=== PATIENT | male | born 1985 | race Caucasian/White ===

== ENCOUNTER 2017-08-10 19:25 | Emergency (ER) | payer SELFPAY ==
[2017-08-10 19:30] VITALS: O2SAT 100
[2017-08-10] MEDS ORDERED: ceFAZolin 2 GM PREMIX 50 ML ONE (19:31)
[2017-08-10] MEDS ORDERED: IOHEXOL 350 MG/ML 10 ML VIAL (for RAD DIAG) IVCONTRAST ONE (19:40)
[2017-08-10 19:44] LABS: AUTOMATED NEUTROPHIL # 4.9 TH/MM3 (1.8-7.7); BASOPHIL # 0.1 TH/MM3 (0-0.2); BASOPHIL % 0.9 % (0.0-2.0); EOSINOPHIL # 0.2 TH/MM3 (0-0.4); EOSINOPHIL % 1.9 % (0.0-4.0); HEMATOCRIT 40.5 % (39.0-51.0); LYMPH % 29.4 % (9.0-44.0); LYMPHOCYTE # 2.4 TH/MM3 (1.0-4.8); MEAN CELL VOLUME 92.2 FL (80.0-100.0); MEAN CORPUSCULAR HEMOGLOBIN 31.9 PG (27.0-34.0); MEAN CORPUSCULAR HGB CONC 34.6 % (32.0-36.0); MONO % 7.3 % (0.0-8.0); MONOCYTE # 0.6 TH/MM3 (0-0.9); NEUT % 60.5 % (16.0-70.0); PLATELET COUNT 244 TH/MM3 (150-450); RED BLOOD COUNT 4.39 MIL/MM3 (4.50-5.90); WHITE BLOOD COUNT 8.2 TH/MM3 (4.0-11.0)
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
[2017-08-10 19:59] LABS: INTERNATIONAL NORMALIZED RATIO 1.1 RATIO; PROTHROMBIN TIME - PATIENT 10.7 SEC (9.8-11.6)
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
[2017-08-10] MEDS ORDERED: ceFAZolin 2 GM/DEX PREMIX 50 ML IV STA (20:20)
[2017-08-10] MEDS ORDERED: DIPHTH/TETANUS/ACEL PERTUSSIS (BOOSTER) 0.5 ML VIAL/PFS IM ONE (20:20)
--- NOTE | 2017-08-10 20:26 | PD ---
Physical Exam Date Seen by Provider: Aug 10, 2017 Time Seen by Provider: 20:25 Narrative For full history and physical examination please see previous providers note. I was asked to repair lacerations to patient's chest wall Data Data Orders Orders I-Stat Profile (08/10/17 19:29) I-Stat Creatinine (08/10/17 19:29) Complete Blood Count With Diff (08/10/17 19:29) Prothrombin Time / Inr (Pt) (08/10/17 19:29) Act Partial Throm Time (Ptt) (08/10/17 19:29) Type And Screen (08/10/17 19:29) Chest, Single Ap (08/10/17 19:29) Iv Access Insert/Monitor (08/10/17 19:29) Ecg Monitoring (08/10/17:29) Oximetry (08/10/17:29) Oxygen Administration (08/10/17 19:29) Ed Poc Ultrasound (08/10/17 19:29) Urinalysis - C+S If Indicated (08/10/17 19:29) Drug Screen, Random Urine (08/10/17 19:29) Ct Thorax/ Chest W Iv Contrast (08/10/17 19:29) Cefazolin 2 Gm Premix (Ancef 2 Gm Premix (08/10/17 19:31) Fentanyl Inj (Fentanyl Inj) (08/10/17 19:31) Ct Brain W/O Iv Contrast(Rout) (08/10/17 19:45) Cefazolin 2 Gm Premix (Ancef 2 Gm Premix (08/10/17 20:20) Cycy-Yfq-Cbzosz (Booster) Inj (Boostrix (08/10/17 20:20) Fentanyl Inj (Fentanyl Inj) (08/10/17 20:30) Labs Laboratory Tests Test 08/10/17 19:30 White Blood Count 8.2 TH/MM3 Red Blood Count 4.39 MIL/MM3 Hemoglobin 14.0 GM/DL Bedside Hemoglobin 13.3 G/DL Hematocrit 40.5 % Bedside Hematocrit 39.0 % Mean Corpuscular Volume 92.2 FL Mean Corpuscular Hemoglobin 31.9 PG Mean Corpuscular Hemoglobin Concent 34.6 % Red Cell Distribution Width 13.0 % Platelet Count 244 TH/MM3 Mean Platelet Volume 8.0 FL Neutrophils (%) (Auto) 60.5 % Lymphocytes (%) (Auto) 29.4 % Monocytes (%) (Auto) 7.3 % Eosinophils (%) (Auto) 1.9 % Basophils (%) (Auto) 0.9 % Neutrophils # (Auto) 4.9 TH/MM3 Lymphocytes # (Auto) 2.4 TH/MM3 Monocytes # (Auto) 0.6 TH/MM3 Eosinophils # (Auto) 0.2 TH/MM3 Basophils # (Auto) 0.1 TH/MM3 CBC Comment DIFF FINAL Differential Comment Prothrombin Time 10.7 SEC Prothromb Time International Ratio 1.1 RATIO Activated Partial Thromboplast Time 25.0 SEC Bedside Sodium 145 MMOL/L Bedside Potassium 3.4 MMOL/L Bedside Chloride 109 MMOL/L Bedside Blood Urea Nitrogen 16 MG/DL Bedside Creatinine 1.2 MG/DL Bedside Glucose 90 MG/DL [facility] Medical Record Reviewed: Yes Supervised Visit with KILEY: Yes Procedures Procedure Narrative LACERATION LOCATION: Mid left anterior chest wall LENGTH: 1 cm NUMBER OF STITCHES/YEHUDA: 2 stitches REPAIR: The area of the laceration was prepped with Betadine and sterilely draped. The laceration was infiltrated with 1% lidocaine. The wound was copiously irrigated and explored without evidence of foreign body, tendon injury or neurovascular injury. The wound was closed using 4-0 Ethilon. This was a 1 layer repair. A sterile dressing was applied. The patient was advised to keep the dressing clean and dry. Patient tolerated the procedure well. LACERATION LOCATION: Left anterior chest wall LENGTH: 2 cm NUMBER OF STITCHES/YEHUDA: 3 stitches REPAIR: The area of the laceration was prepped with Betadine and sterilely draped. The laceration was infiltrated with 1% lidocaine. The wound was copiously irrigated and explored without evidence of foreign body, tendon injury or neurovascular injury. The wound was closed using 4-0 Ethilon. This was a 1 layer repair. A sterile dressing was applied. The patient was advised to keep the dressing clean and dry. Patient tolerated the procedure well. Ellie Kinney Aug 10, 2017 20:26
[2017-08-10] MEDS ORDERED: CEPH-460 PO (20:40)
[2017-08-10 20:53] VITALS: BP 138/88
== END 2017-08-10 21:14 ==
LOC: EDBD 19:25 → NEPI 19:25 → NEPE 21:14
DX: S21.112A Laceration without foreign body of left front wall of thorax without penetration into thoracic cavity, initial encounter (principal); I10 Essential (primary) hypertension; Z23 Encounter for immunization; Y28.1XXA Contact with knife, undetermined intent, initial encounter
CPT/HCPCS: 12002; 70450; 71045; 71260; 80048; 85025; 85610; 85730; 86850; 86900; 86901; 90471; 90715; 96374; 96375; 99291; J0690; J3010; Q9967; G0390